=== PATIENT | female | born 1970 | race Two or more races ===

== ENCOUNTER 2020-02-02 00:38 | Inpatient (IN) | payer OTHER ==
[2020-02-02] MEDS ORDERED: SODIUM CHLORIDE 0.9% 500 ML INFUS.BAG IV ONE (01:32)
[2020-02-02] MEDS ORDERED: ACETAMINOPHEN 1000 MG/100 ML VIAL (NON FORMULARY) IVPB ONE (01:32)
--- NOTE | 2020-02-02 01:51 | PDOC ---
History of Present Illness - General Chief Complaint: Pain, Acute Stated Complaint: PAIN Time Seen by Provider: 02/02/20 01:31 History Source: Patient Exam Limitations: No Limitations - History of Present Illness Initial Comments: 02/02/20 01:46 [id number] who p/w RUQ pain intermittently for the past 2 mo, generally worsening, exacerbated in the past 2 days and in particular tonight after she ate fried plantains. Radiating to her right mid-back, but not to the spine. Denies any f/ c/n/v/d/c, denies chest pain, SOB, lower abdominal pain, dysuria, chance of being , rash, vaginal bleeding/discharge, etc. Has not tried medication for the pain, has not seen a doctor for this in the past 2 months since it started. Past History - Past Medical History Allergies/Adverse Reactions: Allergies Allergy/AdvReac Type Severity Reaction Status Date / Time Penicillins Allergy Verified 02/02/20 01:11 Home Medications: Ambulatory Orders Diltiazem HCl [Diltiazem 24Hr ER] 120 mg PO DAILY 02/02/20 Levofloxacin [Levaquin] 500 mg PO DAILY #5 tablet 02/02/20 Methimazole 10 mg PO Q8H 02/02/20 Pantoprazole Sodium [Protonix IV] 40 mg IVPUSH DAILY vial 02/02/20 Tramadol HCl 50 mg PO Q6H PRN #30 tablet MDD 4 02/02/20 - Psycho Social/Smoking Cessation Hx Smoking History: Never smoked Have you smoked in the past 12 months: No Information on smoking cessation initiated: No Hx Alcohol Use: No Drug/Substance Use Hx: No Review of Systems - Review of Systems Able to Perform ROS?: Yes Comments:: 02/02/20 01:51 GEN: no fever, chills, malaise, or generalized weakness HEENT: no ear pain, congestion, sore throat, vision change, or eye pain CV: no chest pain, palpitations, lightheadedness, syncope, or edema RESP: no SOB, wheezing, or cough GI: abdominal pain, no nausea, vomiting, diarrhea, constipation, or rectal bleed : no dysuria, hematuria, or discharge MSK: no muscle weakness or pain, no joint swelling or pain NEURO: no headache, vertigo, numbness, tingling, or focal weakness PSYCH: no SI, HI, or behavior change SKIN: no jaundice, rash, lesions, or unexplained bruises ROS otherwise negative except as noted in HPI *Physical Exam - Vital Signs Last Vital Signs Temp Pulse Resp BP Pulse Ox 98.0 F 86 20 143/74 99 02/02/20 01:09 02/02/20 01:09 02/02/20 01:09 02/02/20 01:09 02/02/20 01:09 - Physical Exam 02/02/20 01:51 GENERAL: a bit uncomfortable-appearing, A/Ox4, mild distress, holding RUQ in hand/splinting, answers questions appropriately HEENT: PERRLA, EOMI, moist mucous membranes NECK/BACK: no midline ttp, no spinal stepoff or deformity, no hematoma, full ROM, neck supple CARDIOVASCULAR: regular rate/rhythm, no MGR, strong peripheral pulses, capillary refill <2 seconds, extremities wwp, no edema LUNGS/RESPIRATORY: no respiratory distress, CTAB GI/ABDOMEN: symmetric [id number], normoactive BS, soft, moderate RUQ ttp, mild epigastric ttp, no midline pulsatile masses : no CVA tenderness EXTREMITIES: no muscle atrophy, no acute deformity SKIN: warm and dry, no pallor, no jaundice, no rash, no bruising, no skin breakdown, no cuts, no lesions NEUROLOGICAL: GCS 15, CN II-XII grossly intact, 5/5 strength proximally and distally, no facial droop Heart Score/ECG Review #1 Sinus rhythm, rate 72, normal axis and intervals, no ST-T changes ED Treatment Course - LABORATORY CBC & Chemistry Diagram: 02/02/20 07:45 02/02/20 07:45 - RADIOLOGY Radiology Studies Ordered: Category Date Time Status ABDOMEN US -LIMITED [US] Stat Ultrasound 02/02/20 01:27 Ordered Medical Decision Making - Medical Decision Making 02/02/20 01:53 Adult female Pt p/w RUQ abdominal pain. Initial Vital Signs Temp Pulse Resp BP Pulse Ox 98.0 F 86 20 143/74 99 02/02/20 01:09 02/02/20 01:09 02/02/20 01:09 02/02/20 01:09 02/02/20 01:09 Exam: As noted in Physical Exam section. DDX IBNLT: most likely choledocholithiasis or symptomatic cholelightiasis or cholecystitis, also possiblilities include pancreatitis, gastritis, PUD, etc. Less likely cholangitis as the patient is not ill-appearing, no jaundice, no fever or other vitals abnormalities. Less likely appendicitis without RLQ pain, less likely colitis or diverticulitis as patient has no additional GI symptoms and no known hx. Very unlikely to be AAA/AD, ACS, renal colic, obstructive uropathy, UTI/pyelonephritis, hernia, SBO, mesenteric/bowel ischemia, bowel perforation, malignancy, ovarian torsion, ovarian cyst, ectopic , PID, TOA, cervicitis, endometritis, salpingitis, oophoritis, Dasd-Ryek-Tzsqjc syndrome, primary dysmenorrhea, endometriosis, fibroids, constipation, gas, musculoskeletal, etc. W/U ordered: Labs, EKG, RUQ US TX ordered: IVF Ofirmev EKG: Reviewed; results as noted in ECG Review section. US: large stone in neck of gallbladder without e/o cholecystitis Laboratory Tests 02/02/20 02/02/20 02/02/20 02:02 02:02 02:02 WBC 9.2 RBC 5.07 Hgb 13.2 Hct 41.2 MCV 81.1 MCH 26.0 MCHC 32.1 RDW 15.2 Plt Count 235 MPV 8.4 Absolute Neuts (auto) 5.8 Neutrophils % 62.6 Lymphocytes % 28.1 Monocytes % 5.8 Eosinophils % 3.1 Basophils % 0.4 Nucleated RBC % 0 PT with INR 11.60 INR 0.98 Sodium 141 Potassium 3.9 Chloride 106 Carbon Dioxide 29 Anion Gap 7 L BUN 10.6 Creatinine 0.5 L Est GFR (CKD-EPI)AfAm 129.88 Est GFR (CKD-EPI)NonAf 112.06 Random Glucose 120 H Calcium 9.2 Total Bilirubin 0.5 AST 14 L ALT 27 Alkaline Phosphatase 206 H Total Protein 8.0 Albumin 4.2 Lipase 49 L Blood Type Antibody Screen 02/02/20 02:02 WBC RBC Hgb Hct MCV MCH MCHC RDW Plt Count MPV Absolute Neuts (auto) Neutrophils % Lymphocytes % Monocytes % Eosinophils % Basophils % Nucleated RBC % PT with INR INR Sodium Potassium Chloride Carbon Dioxide Anion Gap BUN Creatinine Est GFR (CKD-EPI)AfAm Est GFR (CKD-EPI)NonAf Random Glucose Calcium Total Bilirubin AST ALT Alkaline Phosphatase Total Protein Albumin Lipase Blood Type A POSITIVE Antibody Screen Negative ADMIT The Pts symptoms persist despite ED treatments. The Pt is unsafe for discharge at this time. They require further hospital observation, workup, and treatment. Microblog sent to [facility] for admission. 02/02/20 02:58 Blank Decision to Admit order is placed per ED protocol. Spoke with admitting team sales donor recruitment representative, in agreement Pt to be admitted. Decision to Admit order placed to admitting team covering attending. Will call Surgeon brand sales consultant Emil Damian at 6am. Discharge - Discharge Information Problems reviewed: Yes Clinical Impression/Diagnosis: Symptomatic cholelithiasis Condition: Guarded - Admission Yes - Follow up/Referral - Patient Discharge Instructions - Post Discharge Activity
[2020-02-02 02:12] LABS: BASO % 0.4 % (0-2.0); EOS % 3.1 % (0-4.5); HEMATOCRIT 41.2 % (32.4-45.2); HEMOGLOBIN 13.2 GM/dL (10.7-15.3); LYMPH % 28.1 % (8-40); MCHC 32.1 g/dl (32.0-36.0); MEAN CELL VOLUME 81.1 fl (80-96); MEAN PLT VOLUME 8.4 fl (7.5-11.1); MONO % 5.8 % (3.8-10.2); NEUT % 62.6 % (42.8-82.8); PLATELET COUNT 235 K/MM3 (134-434); RBC 5.07 M/mm3 (3.60-5.2); RDW 15.2 % (11.6-15.6); WHITE BLOOD COUNT 9.2 K/mm3 (4.0-10.0)
[2020-02-02] MEDS ORDERED: ACETAMINOPHEN INJECTION 100 ML IVPB ONE (02:12)
[2020-02-02 02:33] LABS: INR 0.98 (0.83-1.09); PROTHROMBIN TIME (PATIENT) 11.6 SEC (9.7-13.0)
[2020-02-02 02:41] LABS: ALBUMIN 4.2 g/dl (3.4-5.0); BILIRUBIN,TOTAL 0.5 mg/dL (0.2-1); BLOOD UREA NITROGEN 10.6 mg/dL (7-18); CALCIUM 9.2 mg/dL (8.5-10.1); CREATININE 0.5 mg/dL (0.55-1.3); POTASSIUM 3.9 mmol/L (3.5-5.1)
--- NOTE | 2020-02-02 02:53 | PN ---
Teaching Attending Note Name of Resident: Franklin Whitney ATTENDING PHYSICIAN STATEMENT I saw and evaluated the patient. I reviewed the resident's note and discussed the case with the resident. I agree with the resident's findings and plan as documented. SUBJECTIVE: Patient is a 49 year old woman with a PMH of Asthma, Hyperparathyroidism and Peniicllin allergy who presents with RUQ pain intermittently for the past 2 months. Pain is generally worsening in the past 2 days and in particular tonight after she ate fried plantains. Pain radiate to her right mid-back. Denies any fever, chills, nausea, diarrhea, vomiting, chest pain, SOB, lower abdominal pain, dysuria, rash, vaginal bleeding or abnormal vaginal discharge. Has not tried medication for the pain and has not seen a doctor for this in the past 2 months since it started. Denies alcohol, tobacco or illicit drug use. No sick contacts or recent travels. OBJECTIVE: Alert Vital Signs Period Temp Pulse Resp BP Sys/[place] Pulse Ox Last 24 Hr 98.0 F 86 20 143/74 99 HEENT: No Jaundice, eye redness or discharge, PERRLA, EOMI. Normocephalic, atraumatic. External ears are normal and hearing is grossly intact. No nasal discharge. Neck: Supple, nontender. No palpable adenopathy or thyromegaly. No JVD Chest: Good effort. Clear to auscultation and percussion. Heart: Regular. No S3, rub or murmur Abdomen: Not distended, soft, RUQ and epigastric tenderness and no HSM. No rebound or guarding. Normal bowel sounds. Ext: Peripheral pulses intact. No leg edema. Skin: Warm and dry. No petechiae, rash or ecchymosis. Neuro: Alert. Oriented x3. CN 2-12 grossly intact. Sensation grossly intact in all four extremities and DTR are symmetric. Psych: Appropriate mood and affect. Good insight. Abnormal Lab Results 02/02/20 02:02 Anion Gap 7 L Creatinine 0.5 L Random Glucose 120 H AST 14 L Alkaline Phosphatase 206 H Lipase 49 L Current Medications Generic Name Dose Route Start Last Admin Trade Name Freq PRN Reason Stop Dose Admin Acetaminophen 1,000 mg 02/02/20 09:00 Ofirmev Injection - IVPB 02/03/20 03:27 Q6H PRN PAIN LEVEL 6-10 Dextrose/Sodium Chloride 1,000 mls @ 75 mls/hr 02/02/20 03:30 D5-Ns - IV ASDIR ANIBAL Methimazole 10 mg 02/02/20 06:00 Tapazole - PO TID ANIBAL Ondansetron HCl 4 mg 02/02/20 03:26 Zofran Injection IVPUSH Q6H PRN NAUSEA Home Medications Medication Instructions Recorded Diltiazem HCl [Diltiazem ER] 120 mg PO DAILY 02/02/20 Methimazole 10 mg PO Q8H 02/02/20 ASSESSMENT AND PLAN: 1. Cholelithiasis/Biliary colic - Ultrasound showed cholelithiasis and impacted stone at gall bladder neck, gall bladder sludge, but no evidence of cholelithiasis. Will get an MRCP, consult Surgery and GI. Pain controlled with tylenol. No indication for antibiotics at this time. EKG shows NSR with rate of 72/minute and no significant ST-T wave changes. Urinalysis pending. Will continue comprehensive care for all of patients comorbid conditions including Methimazole for hyperthyroidism. 2. DVT prophylaxis - Lovenox 40 mg SQ q 24 hours. 3. Advance directives - Full code
--- NOTE | 2020-02-02 02:59 | PDOC ---
Attending Attestation - Resident Resident Name: Tamiko Hardin - ED Attending Attestation I have performed the following: I have examined & evaluated the patient, The case was reviewed & discussed with the resident, I agree w/resident's findings & plan, Exceptions are as noted - HPI HPI: 02/02/20 02:58 See resident HPI - Physicial Exam PE: 02/02/20 02:58 Agree with documented exam - Medical Decision Making 02/02/20 02:58 49F ruq abd px acute luz marina? pancreatitis? less likely pyelo, nephrolith f/u labs, US symptomatic tx re-eval dispo per clinical course Discharge - Discharge Information Problems reviewed: Yes Clinical Impression/Diagnosis: Symptomatic cholelithiasis Condition: Stable - Admission Yes - Follow up/Referral - Patient Discharge Instructions - Post Discharge Activity
[2020-02-02] MEDS ORDERED: ONDANSETRON 4 MG/2 ML VIAL IVPUSH PRN ×3 (03:26→14:02)
[2020-02-02] MEDS ORDERED: DEXTROSE 5%-NORMAL SALINE 1,000 ML IV SCH ×2 (03:30→14:02)
--- NOTE | 2020-02-02 03:35 | HP ---
CHIEF COMPLAINT: RUQ pain PCP: Dr. Young HISTORY OF PRESENT ILLNESS: Danay Roberto is a 49 year old female with a past medical history of hyperthyroidism and asthma presenting for RUQ pain. She stated that she was at [facility] in July for a similar presentation and stated that she was told that she had inflammation of her gallbladder and told to follow up with GI which she noted she never did. She states that the pain was intermittent and was associated with meals. Pain would resolve spontaneously. On this occasion she ate a meal of fried plantains and noted that the pain did not remit and was associated with nausea and non bloody non bilious vomiting. She states the pain radiated to the epigastric region. Denied alleviating factors. Denied cp, sob, constipation, diarrhea, dysuria, hematuria, frequency, urgency, fever, chills, headaches, dizziness, lightheadedness. Denied recent travel or sick contacts. 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 Allergies Penicillins Allergy (Verified 02/02/20 01:11) HOME MEDICATIONS: REVIEW OF SYSTEMS CONSTITUTIONAL: loss of appetite Absent: fever, chills, diaphoresis, generalized weakness, malaise, weight change HEENT: Absent: rhinorrhea, nasal congestion, throat pain, throat swelling, difficulty swallowing, visual changes CARDIOVASCULAR: Absent: chest pain, syncope, palpitations, irregular heart rate, lightheadedness, peripheral edema RESPIRATORY: Absent: cough, shortness of breath, dyspnea with exertion, orthopnea, wheezing GASTROINTESTINAL: abdominal pain, nausea, vomiting Absent: abdominal distension, diarrhea, constipation, melena, hematochezia GENITOURINARY: Absent: dysuria, frequency, urgency, hesitancy, hematuria, flank pain, genital pain MUSCULOSKELETAL: Absent: myalgia, arthralgia, joint swelling, back pain, neck pain SKIN: Absent: rash, itching, pallor HEMATOLOGIC/IMMUNOLOGIC: Absent: easy bleeding, easy bruising, lymphadenopathy, frequent infections ENDOCRINE: Absent: unexplained weight gain, unexplained weight loss, heat intolerance, cold intolerance NEUROLOGIC: Absent: headache, focal weakness or paresthesias, dizziness, unsteady gait, seizure, mental status changes PSYCHIATRIC: Absent: anxiety, depression, suicidal or homicidal ideation, hallucinations. PHYSICAL EXAMINATION Vital Signs - 24 hr 02/02/20 01:09 Temperature 98.0 F Pulse Rate 86 Respiratory 20 Rate Blood Pressure 143/74 O2 Sat by Pulse 99 Oximetry (%) GENERAL: Awake, alert, and fully oriented, in no acute distress. HEAD: Normal with no signs of trauma. EYES: Pupils equal, round and reactive to light, extraocular movements intact, conjunctiva clear. EARS, NOSE, THROAT: Oropharynx clear without exudates. Moist mucous membranes. LUNGS: Breath sounds equal, clear to auscultation bilaterally. No wheezes, and no crackles. No accessory muscle use. HEART: Regular rate and rhythm, normal S1 and S2 without murmur. ABDOMEN: Soft, tender to palpation of the RUQ, not distended, normoactive bowel sounds, no rebound, no masses. Ruffin's positive. MUSCULOSKELETAL: Normal range of motion at all joints. No bony deformities or tenderness. No CVA tenderness. LOWER EXTREMITIES: 2+ pulses, warm, well-perfused. No calf tenderness. No peripheral edema. NEUROLOGICAL: Cranial nerves II-XII intact. 5/5 muscle strength upper and lower extremities bilaterally. Sensation intact to gross touch throughout. PSYCHIATRIC: Cooperative. Good eye contact. Appropriate mood and affect. SKIN: Warm, dry, normal turgor, no rashes or lesions noted, normal capillary refill. Laboratory Results - last 24 hr 02/02/20 02/02/20 02/02/20 02:02 02:02 02:02 WBC 9.2 RBC 5.07 Hgb 13.2 Hct 41.2 MCV 81.1 MCH 26.0 MCHC 32.1 RDW 15.2 Plt Count 235 MPV 8.4 Absolute Neuts (auto) 5.8 Neutrophils % 62.6 Lymphocytes % 28.1 Monocytes % 5.8 Eosinophils % 3.1 Basophils % 0.4 Nucleated RBC % 0 PT with INR 11.60 INR 0.98 Sodium 141 Potassium 3.9 Chloride 106 Carbon Dioxide 29 Anion Gap 7 L BUN 10.6 Creatinine 0.5 L Est GFR (CKD-EPI)AfAm 129.88 Est GFR (CKD-EPI)NonAf 112.06 Random Glucose 120 H Calcium 9.2 Total Bilirubin 0.5 AST 14 L ALT 27 Alkaline Phosphatase 206 H Total Protein 8.0 Albumin 4.2 Lipase 49 L EKG--> NSR, flat T wave in aVL, no ST segment changes, QTc 429 ASSESSMENT/PLAN: Danay Roberto is a 49 year old female with a past medical history of hyperthyroidism and asthma admitted for biliary colic secondary to impacted gallbladder stone. Impacted Gallbladder Stone - RUQ with noted impacted gallbladder stone with no evidence of cholecystitis - Tylenol for pain, tolerating well - Zofran for nausea - D5 NS at 75cc/hr - Surgery consulted - NPO for possible surgery Hyperthyroidism - continue home methimazole 10mg q8h DVT PPx - SCDs, no chemical prophylaxis in setting of potential surgery FEN - D5 NS at 75cc/hr - continue to monitor electrolytes and replete as necessary - NPO Dispo - admit to Med-surg Family Medical History Family Hx Cardiac Disorders: Mother Family Hx Diabetes: Mother Other Family History: Mother - HTN Visit type - Emergency Visit Emergency Visit: Yes ED Registration Date: 02/02/20 Care time: The patient presented to the Emergency Department on the above date and was hospitalized for further evaluation of their emergent condition. - New Patient This patient is new to me today: Yes Date on this admission: 02/02/20 - Critical Care Critical Care patient: No
[2020-02-02] MEDS ORDERED: METHIMAZOLE 10 MG TABLET (FP) PO SCH ×2 (03:45→06:00)
[2020-02-02 04:36] VITALS: BMI 23.7
[2020-02-02] MEDS ORDERED: MORPHINE SULFATE 2 MG/ML VIAL IVPUSH ONE (06:39)
[2020-02-02 06:49] LABS: URINE APPEARANCE CLEAR; URINE BILIRUBIN NEGATIVE (NEGATIVE); URINE COLOR YELLOW; URINE GLUCOSE (UA) NEGATIVE (NEGATIVE); URINE KETONE NEGATIVE (NEGATIVE); URINE LEUK ESTERASE NEGATIVE (NEGATIVE); URINE NITRITE NEGATIVE (NEGATIVE); URINE PROTEIN NEGATIVE (NEGATIVE); URINE UROBILINOGEN 0.2 mg/dL (0.2-1.0)
[2020-02-02 06:52] LABS: HCG,QUALITATIVE URINE Negative
--- NOTE | 2020-02-02 08:22 | HOSP ---
Subjective - Review of Symptoms Gastrointestinal: Yes: Abdominal Pain (RUQ) Physical Examination Vital Signs: Vital Signs Temperature 98.2 F 02/02/20 05:41 Pulse Rate 70 02/02/20 05:41 Respiratory Rate 18 02/02/20 05:41 Blood Pressure 140/66 02/02/20 05:41 O2 Sat by Pulse Oximetry (%) 98 02/02/20 04:12 Constitutional: Yes: Well Nourished, No Distress, Calm Eyes: Yes: WNL, Conjunctiva Clear, EOM Intact HENT: Yes: WNL, Atraumatic, Normocephalic Neck: Yes: WNL, Supple, Trachea Midline Cardiovascular: Yes: WNL, Regular Rate and Rhythm Respiratory: Yes: WNL, Regular, CTA Bilaterally Gastrointestinal: Yes: WNL, Normal Bowel Sounds, Soft, Tenderness (RUQ), Other ([place] sign +) ...Rectal Exam: Yes: Deferred Renal/: Yes: WNL Breast(s): Yes: WNL Musculoskeletal: Yes: WNL Extremities: Yes: WNL Peripheral Pulses WNL: No Peripheral Pulses: Left Radial: 2+, Right Radial: 2+, Left Doralis Pedis: 2+, Right Dorsalis Pedis: 2+, Left Femoral: 2+, Right Femoral: 2+ Integumentary: Yes: WNL Neurological: Yes: WNL, Alert, Oriented ...Motor Strength: WNL Psychiatric: Yes: WNL, Alert, Oriented Labs: CBC, BMP 02/02/20 02:02 02/02/20 02:02 Hospitalist Encounter Assessment: RUQ with noted possible impacted 1.6 cm gallbladder stone in the gallbladder neck and gallbladder sludge without evidence of cholecystitis Pending OR with Dr Bacon for lap luz marina
[2020-02-02 08:54] LABS: BASO % 0.3 % (0-2.0); EOS % 2.2 % (0-4.5); HEMOGLOBIN 13.1 GM/dL (10.7-15.3); MCH 25.8 pg (25.7-33.7); MCHC 31.9 g/dl (32.0-36.0); MEAN CELL VOLUME 81.1 fl (80-96); MEAN PLT VOLUME 8.8 fl (7.5-11.1); MONO % 3.8 % (3.8-10.2); NEUT % 74.7 % (42.8-82.8); PLATELET COUNT 239 K/MM3 (134-434); RBC 5.05 M/mm3 (3.60-5.2); RDW 15.4 % (11.6-15.6); WHITE BLOOD COUNT 7.8 K/mm3 (4.0-10.0)
[2020-02-02] MEDS ORDERED: ACETAMINOPHEN 1000 MG/100 ML VIAL (NON FORMULARY) IVPB PRN ×2 (09:00→14:02)
[2020-02-02 09:21] LABS: ALBUMIN 4.1 g/dl (3.4-5.0); BILIRUBIN,TOTAL 0.7 mg/dL (0.2-1); BLOOD UREA NITROGEN 8.9 mg/dL (7-18); CALCIUM 9.2 mg/dL (8.5-10.1); CREATININE 0.5 mg/dL (0.55-1.3); MAGNESIUM 2.1 mg/dL (1.8-2.4); PHOSPHOROUS 4.2 mg/dL (2.5-4.9); POTASSIUM 4.2 mmol/L (3.5-5.1); TOT PROT 7.9 g/dl (6.4-8.2)
--- NOTE | 2020-02-02 10:45 | EKG ---
Test Reason : Blood Pressure : / mmHG Vent. Rate : 072 BPM Atrial Rate : 072 BPM P-R Int : 150 ms QRS Dur : 090 ms QT Int : 392 ms P-R-T Axes : 058 031 059 degrees QTc Int : 429 ms NORMAL SINUS RHYTHM NONSPECIFIC ST AND T WAVE ABNORMALITY ABNORMAL ECG NO PREVIOUS ECGS AVAILABLE Confirmed by BERE THOMASON MD ([id number]) on 02/02/2020 10:45:13 AM Referred By: Confirmed By:BERE THOMASON MD
[2020-02-02] MEDS ORDERED: ROCURONIUM BROMIDE 50 MG/5 ML SYRINGE ONE (10:49)
[2020-02-02] MEDS ORDERED: MIDAZOLAM HCL 2 MG/2 ML SINGLE DOSE VIAL ONE (10:49)
[2020-02-02] MEDS ORDERED: PROPOFOL 20 ML ONE ×2 (10:49)
[2020-02-02] MEDS ORDERED: ceFAZolin SODIUM 1 GM VIAL IVPB ONE (11:56)
[2020-02-02] MEDS ORDERED: NEOSTIGMINE METHYLSULFATE 0.5 MG/ML - 10 ML MDV ONE (12:19)
[2020-02-02] MEDS ORDERED: morphine SULFATE 4 MG/ML VIAL IVPB PRN (12:24)
[2020-02-02] MEDS ORDERED: oxyCODONE HCL 5 MG TABLET PO PRN (12:24)
--- NOTE | 2020-02-02 12:30 | OP ---
Operative Note - Note: Operative Date: 02/02/20 Pre-Operative Diagnosis: acute cholecystitits, cholelithiasis Operation: laparoscopic cholecystectomy, lavage Findings: thickened, inflamed gb, with large stone at neck Post-Operative Diagnosis: Same as Pre-op Surgeon: Franklin Samano Constitutional Law Professor: Zohaib Riley Anesthesiologist/IRRIGATION EQUIPMENT REMOVER: Glen [place] Anesthesia: General Specimens Removed: gb Estimated Blood Loss (mls): 10 Operative Report Dictated: Yes
--- NOTE | 2020-02-02 12:34 | CONS ---
DATE OF CONSULTATION: 02/02/2020 REASON FOR CONSULTATION: Acute cholecystitis, cholelithiasis. This is an emergency room consultation at the request of the emergency room physician. BRIEF HISTORY: This is a 49-year-old female with history of hyperthyroidism and hypertension as well as asthma. She presents stating that for the past month she has had fatty food intolerance. This week, she has had multiple episodes of epigastric and right upper quadrant pain. She was hospitalized in [place] in July for similar presentation and told that she had gallbladder disease. She presents now with more than 12 hours of severe right upper quadrant pain. She denies nausea or vomiting. Denies fever. PAST MEDICAL HISTORY: As in HPI. PAST SURGICAL HISTORY: Had a skin cyst removed from her scalp and breast reduction surgery. No abdominal surgeries. SOCIAL HISTORY: Negative for alcohol. Negative for tobacco. ALLERGIES: PENICILLIN. HOME MEDICATIONS: She is not sure of the name, but she is on a thyroid medication and a hypertension medication and an inhaler for her asthma. REVIEW OF SYSTEMS: General: Denies fatigue or malaise. Cardiac: Denies chest pain or palpitations. Respiratory: Denies shortness of breath or wheeze. Gastrointestinal: As stated in HPI. Denies diarrhea. Denies blood in her stool. Denies recent weight loss. Genitourinary: Denies dysuria. Musculoskeletal: Denies joint pain. Psychiatric: Denies anxiety, depression, hearing voices. PHYSICAL EXAMINATION: General: This is a well-developed, well-nourished 49-year-old female in no distress. Vital Signs: She is afebrile. HEENT: Her head is normocephalic. Her sclerae are anicteric. Neck: Supple. Chest: Clear. Abdomen: Soft. She has severe epigastric as well as right upper quadrant tenderness. There are no surgical scars. No obvious hernias. Extremities: No edema. LABORATORY DATA: White blood cell count is normal at 7.8. There is no shift. Her chemistries are unremarkable. She has normal liver function tests with the exception of a mildly elevated alkaline phosphatase of 207. Her lipase is normal. Her urinalysis is unremarkable. IMAGING: She has an ultrasound of her abdomen. It shows a fatty liver with possible hepatocellular disease. It shows a large gallstone, non-mobile, at the gallbladder neck with sludge. Her common bile duct is noted to be 6 mm in diameter. ASSESSMENT: A 49-year-old female with right upper quadrant abdominal pain, right upper quadrant tenderness, ultrasound findings showing a stone impacting in the neck of the gallbladder with a mildly dilated common bile duct. Clinically, this is acute cholecystitis as the patient has had pain now for more than 6 hours. Her physical examination findings support that even though her white blood cell count is normal and she has no fever. As far as her mildly dilated bile duct, it is only 1 mm dilated more than you would expect at her age. Furthermore, her liver function tests, with the exception of a mildly elevated alkaline phosphatase, are unremarkable. Especially noted, her AST is only 12, her ALT is 27, and her total bilirubin is 0.7. Therefore, I have a very low suspicion for choledocholithiasis. At this point, as the patient has had severe pain overnight, I agree with admission, and I suspect she will have a poor outcome without surgical intervention. Therefore, I have offered the patient surgery, and she has agreed. Risks and benefits of surgery have been explained to the patient in detail. These are including, but not limited to, the possibility of conversion to open, possibility of common bile duct injury, possibility of cystic duct stump leak, possibility of retained stone, possibility of injury to viscera, possibility of blood loss requiring blood transfusion, possibility of missed diagnosis, plus a multitude of medical risks including, but not limited to, cardiac, neurologic, pulmonary, and vascular complications, even . The patient understands these risks and is agreeable to surgery. DO VARUN BOCANEGRA/[id number]
[2020-02-02] MEDS ORDERED: LACTATED RINGERS SOLUTION 1,000 ML IV SCH (12:45)
--- NOTE | 2020-02-02 13:08 | SURG ---
Surgery Clutch Assembler Note Clutch Assembler: Zohaib Riley PA-C Date of Service: 02/02/20 Diagnosis: acute cholecystitits, cholelithiasis Procedure: laparoscopic cholecystectomy, lavage I was present for the entirety of the operative procedure. For further detail, please refer to operative report. Visit type - Case Type Case Type: ED Admission - Emergency Emergency Visit: Yes ED Registration Date: 02/02/20 Care time: The patient presented to the Emergency Department on the above date and was hospitalized for further evaluation of their emergent condition. - New patient This patient is new to me today: Yes Date on this admission: 02/02/20
--- NOTE | 2020-02-02 13:11 | OP ---
DATE OF OPERATION: 02/02/2020 PREOPERATIVE DIAGNOSES: Acute cholecystitis, cholelithiasis. POSTOPERATIVE DIAGNOSES: Acute cholecystitis, cholelithiasis. PROCEDURE: Laparoscopic cholecystectomy and lavage. SURGEON: Franklin Samano DO CAMP HEAD COUNSELOR: TRICE Arellano ANESTHESIOLOGIST: Glen Marie MD INTRAOPERATIVE FINDINGS: A thickened inflamed gallbladder with a large stone impacted at its neck. BLOOD LOSS: Minimal. DRAINS: None. COMPLICATIONS: None. DISPOSITION: Recovery in stable condition. BRIEF HISTORY: This is a 49-year-old female who presented to [facility] emergency room with right upper quadrant abdominal pain lasting more than 12 hours. She had ultrasound findings consistent with acute cholecystitis with normal liver function tests with the exception of alkaline phosphatase and presents now for surgery. PROCEDURE: The patient was placed in the supine position. After general anesthesia was initiated the abdomen was prepped and draped in sterile fashion. A vertical incision was made infraumbilical with scalpel used to go through subcutaneous tissue. The fascia was lifted with a Barrington clamp. Veress needle was inserted and pneumoperitoneum was created. Next an 11-mm trocar was placed followed by insertion of a 10-mm 0-degree laparoscope. An additional 11-mm trocar was placed subxiphoid and two 5-mm trocars placed in the right upper quadrant. Attention was turned to the right upper quadrant and the gallbladder was seen. It was pale, distended, partially ischemic with a large stone impacted at its neck. Variceal decompression was done in order to enable grasping of the gallbladder, the fundus lifted cephalad, the infundibulum retracted laterally. The was dissected down exposing a small cystic duct and cystic artery. A large stone had to be mobilized from the infundibulum in order to enable grasping of the infundibulum. A clip belt lacer was used to divide the cystic duct and cystic artery. The gallbladder was liberated from the liver bed using electrocautery. The critical view was ascertained prior to doing this. At this point the gallbladder was removed through the infraumbilical trocar site in an EndoCatch bag and sent to Pathology marked as specimen. A limited lavage was done. All return was clear. Trocars were removed under direct visualization as pneumoperitoneum was released and no bleeding was noted. The fascia at the infraumbilical trocar site was closed with multiple interrupted 0 Vicryl sutures. The 4 skin incisions were closed with Biosyn and Dermabond dressing was placed. Overall the patient tolerated the procedure well. There were no complications. The patient was advised to stay overnight per routine; however, she stated for personal reasons she may not follow my advice preoperatively. DO VARUN BOCANEGRA/[id number] MTDD
--- NOTE | 2020-02-02 16:25 | DS ---
Physical Exam: SUBJECTIVE: Patient seen and examined OBJECTIVE: Vital Signs Period Temp Pulse Resp BP Sys/[place] Pulse Ox Last 24 Hr 98 F-98.2 F 48-86 14-20 123-147/58-74 98-100 PHYSICAL EXAM GENERAL: The patient is awake, alert, and fully oriented, in no acute distress. HEAD: Normal with no signs of trauma. EYES: PERRL, extraocular movements intact, sclera anicteric, conjunctiva clear. ENT: Ears normal, nares patent, oropharynx clear without exudates, moist mucous membranes. NECK: Trachea midline, full range of motion, supple. LUNGS: Breath sounds equal, clear to auscultation bilaterally, no wheezes, no crackles, no accessory muscle use. HEART: Regular rate and rhythm, S1, S2 without murmur, rub or gallop. ABDOMEN: Soft, nontender, nondistended, normoactive bowel sounds, no guarding, no rebound, no hepatosplenomegaly, no masses. EXTREMITIES: 2+ pulses, warm, well-perfused, no edema. NEUROLOGICAL: Cranial nerves II through XII grossly intact. Normal speech, gait not observed. PSYCH: Normal mood, normal affect. SKIN: Warm, dry, normal turgor, no rashes or lesions noted. LABS Laboratory Results - last 24 hr 02/02/20 02/02/20 02/02/20 02:02 02:02 02:02 WBC 9.2 RBC 5.07 Hgb 13.2 Hct 41.2 MCV 81.1 MCH 26.0 MCHC 32.1 RDW 15.2 Plt Count 235 MPV 8.4 Absolute Neuts (auto) 5.8 Neutrophils % 62.6 Lymphocytes % 28.1 Monocytes % 5.8 Eosinophils % 3.1 Basophils % 0.4 Nucleated RBC % 0 PT with INR 11.60 INR 0.98 Sodium 141 Potassium 3.9 Chloride 106 Carbon Dioxide 29 Anion Gap 7 L BUN 10.6 Creatinine 0.5 L Est GFR (CKD-EPI)AfAm 129.88 Est GFR (CKD-EPI)NonAf 112.06 Random Glucose 120 H Calcium 9.2 Phosphorus Magnesium Total Bilirubin 0.5 AST 14 L ALT 27 Alkaline Phosphatase 206 H Total Protein 8.0 Albumin 4.2 Lipase 49 L Urine Color Urine Appearance Urine pH Ur Specific [place] Urine Protein Urine Glucose (UA) Urine Ketones Urine Blood Urine Nitrite Urine Bilirubin Urine Urobilinogen Ur Leukocyte Esterase Urine HCG, Qual Blood Type Antibody Screen 02/02/20 02/02/20 02/02/20 02:02 05:08 07:45 WBC 7.8 RBC 5.05 Hgb 13.1 Hct 41.0 MCV 81.1 MCH 25.8 MCHC 31.9 L RDW 15.4 Plt Count 239 MPV 8.8 Absolute Neuts (auto) 5.8 Neutrophils % 74.7 Lymphocytes % 19.0 D Monocytes % 3.8 Eosinophils % 2.2 Basophils % 0.3 Nucleated RBC % 0 PT with INR INR Sodium Potassium Chloride Carbon Dioxide Anion Gap BUN Creatinine Est GFR (CKD-EPI)AfAm Est GFR (CKD-EPI)NonAf Random Glucose Calcium Phosphorus Magnesium Total Bilirubin AST ALT Alkaline Phosphatase Total Protein Albumin Lipase Urine Color Yellow Urine Appearance Clear Urine pH 8.0 Ur Specific [place] 1.016 Urine Protein Negative Urine Glucose (UA) Negative Urine Ketones Negative Urine Blood Negative Urine Nitrite Negative Urine Bilirubin Negative Urine Urobilinogen 0.2 Ur Leukocyte Esterase Negative Urine HCG, Qual Negative Blood Type A POSITIVE Antibody Screen Negative 02/02/20 07:45 WBC RBC Hgb Hct MCV MCH MCHC RDW Plt Count MPV Absolute Neuts (auto) Neutrophils % Lymphocytes % Monocytes % Eosinophils % Basophils % Nucleated RBC % PT with INR INR Sodium 142 Potassium 4.2 Chloride 106 Carbon Dioxide 29 Anion Gap 7 L BUN 8.9 Creatinine 0.5 L Est GFR (CKD-EPI)AfAm 129.88 Est GFR (CKD-EPI)NonAf 112.06 Random Glucose 128 H Calcium 9.2 Phosphorus 4.2 Magnesium 2.1 Total Bilirubin 0.7 AST 12 L ALT 27 Alkaline Phosphatase 207 H Total Protein 7.9 Albumin 4.1 Lipase Urine Color Urine Appearance Urine pH Ur Specific [place] Urine Protein Urine Glucose (UA) Urine Ketones Urine Blood Urine Nitrite Urine Bilirubin Urine Urobilinogen Ur Leukocyte Esterase Urine HCG, Qual Blood Type Antibody Screen HOSPITAL COURSE: Date of Admission:02/02/20 Date of Discharge: 02/02/20 Discharge Summary Problems reviewed: Yes Reason For Visit: SYMPTOMS OF CHOLELITHIASIS Condition: Improved - Instructions Diet, Activity, Other Instructions: Franklin Quan D.O. POST-OPERATIVE DISCHARGE INSTRUCTIONS [address] [place] [address] Post Anesthesia/IV Sedation Do not drive a motor vehicle or drink alcohol for the next 24 hours. Physical Activity Resume normal everyday activity as tolerated. No heavy lifting or exercise until seen by your surgeon. You may walk unlimited amounts and climb stairs. You may resume driving a car when you feel safe and comfortable behind the wheel. Wound Care / Bathing If you have a bandage, leave it on, and keep dry, for 48 to 72 hours. After that time, discard the outer bandage. If there are tapes on the skin under the outer bandage, leave then in place. They will peel of in the next 7-10 days. Do not peel them off. You may shower in 48-72 hours after the bandage removal. If there are tapes present on the skin, you may shower over them. If you have clear glue covering your incision, you may shower in 24 hours. It will peel off in the next 1-2 weeks. Diet There are no dietary restrictions. Eat healthy, high fiber foods. Drink 6-8 glasses of fluid each day. This will assist in keeping your bowels regular. Pain Management You may take Tylenol (Acetaminophen) or Ibuprofen (Motrin, Advil, etc) for mild pain. Prescription medication, if ordered, should be taken as prescribed for moderate to severe pain. Bruising Some black and blue areas on or around your surgical site are normal and will disappear in a few days. Male groin hernia patients may experience swelling and black/blueness in the penis and scrotum. This will resolve on its own in 1-[address] COWAN / DR. MCKEON / DR. QUAN FOR ANY OF THE FOLLOWING: * Severe pain not relieved by medication * Fever of 101 or higher * Excessive bleeding or drainage on dressing * Inability to urinate Call the office at [phone] for an appointment in 10-14 days. - Home Medications Comprehensive Discharge Medication List: Ambulatory Orders Diltiazem HCl [Diltiazem 24Hr ER] 120 mg PO DAILY 02/02/20 Levofloxacin [Levaquin] 500 mg PO DAILY #5 tablet 02/02/20 Methimazole 10 mg PO Q8H 02/02/20 Pantoprazole Sodium [Protonix IV] 40 mg IVPUSH DAILY vial 02/02/20 Tramadol HCl 50 mg PO Q6H PRN #30 tablet MDD 4 02/02/20
[2020-02-02] MEDS ORDERED: PT OWN MED DRAWER 7, Y5N ONE (21:24)
[2020-02-02] MEDS: METHIMAZOLE 10 MG TABLET (FP) PO SCH (21:39)
[2020-02-03] MEDS: METHIMAZOLE 10 MG TABLET (FP) PO SCH (05:48)
--- NOTE | 2020-02-03 08:06 | DS ---
Physical Exam: SUBJECTIVE: Patient seen and examined OBJECTIVE: Vital Signs Period Temp Pulse Resp BP Sys/[place] Pulse Ox Last 24 Hr 97.9 F-98.5 F 48-85 14-20 120-147/58-76 98-100 PHYSICAL EXAM Constitutional: Yes: Well Nourished, No Distress, Calm Eyes: Yes: WNL, Conjunctiva Clear, EOM Intact HENT: Yes: WNL, Atraumatic, Normocephalic Neck: Yes: WNL, Supple, Trachea Midline Cardiovascular: Yes: WNL, Regular Rate and Rhythm Respiratory: Yes: WNL, Regular, CTA Bilaterally Gastrointestinal: Yes: WNL, Normal Bowel Sounds, Soft, Tenderness (RUQ), Other (Babcock sign +) ...Rectal Exam: Yes: Deferred Renal/: Yes: WNL Breast(s): Yes: WNL Musculoskeletal: Yes: WNL Extremities: Yes: WNL Peripheral Pulses WNL: No Peripheral Pulses: Left Radial: 2+, Right Radial: 2+, Left Doralis Pedis: 2+, Right Dorsalis Pedis: 2+, Left Femoral: 2+, Right Femoral: 2+ Integumentary: Yes: WNL Neurological: Yes: WNL, Alert, Oriented ...Motor Strength: WNL Psychiatric: Yes: WNL, Alert, Oriented CBC, BMP 02/02/20 02:02 02/02/20 02:0 LABS Laboratory Results - last 24 hr 02/02/20 02/02/20 07:45 07:45 WBC 7.8 RBC 5.05 Hgb 13.1 Hct 41.0 MCV 81.1 MCH 25.8 MCHC 31.9 L RDW 15.4 Plt Count 239 MPV 8.8 Absolute Neuts (auto) 5.8 Neutrophils % 74.7 Lymphocytes % 19.0 D Monocytes % 3.8 Eosinophils % 2.2 Basophils % 0.3 Nucleated RBC % 0 Sodium 142 Potassium 4.2 Chloride 106 Carbon Dioxide 29 Anion Gap 7 L BUN 8.9 Creatinine 0.5 L Est GFR (CKD-EPI)AfAm 129.88 Est GFR (CKD-EPI)NonAf 112.06 Random Glucose 128 H Calcium 9.2 Phosphorus 4.2 Magnesium 2.1 Total Bilirubin 0.7 AST 12 L ALT 27 Alkaline Phosphatase 207 H Total Protein 7.9 Albumin 4.1 HOSPITAL COURSE: Date of Admission:02/02/20 Date of Discharge: 02/03/20 RUQ with noted possible impacted 1.6 cm gallbladder stone in the gallbladder neck and gallbladder sludge without evidence of cholecystitis S/P lap luz marina. POD # [address] Quan. No intraop complications. Tolerating full diet. Pain well managed. Able to ambulate and voided. Levaquin x 5 days fro discharge. Tramadol for pain. Surgical discharge instructions given. Medically stable for dc to home Minutes to complete discharge: 35 Discharge Summary Problems reviewed: Yes Reason For Visit: SYMPTOMS OF CHOLELITHIASIS - Instructions Diet, Activity, Other Instructions: Franklin Quan D.O. POST-OPERATIVE DISCHARGE INSTRUCTIONS [address] [facility], [address] [place] [address] Post Anesthesia/IV Sedation Do not drive a motor vehicle or drink alcohol for the next 24 hours. Physical Activity Resume normal everyday activity as tolerated. No heavy lifting or exercise until seen by your surgeon. You may walk unlimited amounts and climb stairs. You may resume driving a car when you feel safe and comfortable behind the wheel. Wound Care / Bathing If you have a bandage, leave it on, and keep dry, for 48 to 72 hours. After that time, discard the outer bandage. If there are tapes on the skin under the outer bandage, leave then in place. They will peel of in the next 7-10 days. Do not peel them off. You may shower in 48-72 hours after the bandage removal. If there are tapes present on the skin, you may shower over them. If you have clear glue covering your incision, you may shower in 24 hours. It will peel off in the next 1-2 weeks. Diet There are no dietary restrictions. Eat healthy, high fiber foods. Drink 6-8 glasses of fluid each day. This will assist in keeping your bowels regular. Pain Management You may take Tylenol (Acetaminophen) or Ibuprofen (Motrin, Advil, etc) for mild pain. Prescription medication, if ordered, should be taken as prescribed for moderate to severe pain. Bruising Some black and blue areas on or around your surgical site are normal and will disappear in a few days. Male groin hernia patients may experience swelling and black/blueness in the penis and scrotum. This will resolve on its own in 1-[address] COWAN / DR. MCKEON / DR. QUAN FOR ANY OF THE FOLLOWING: * Severe pain not relieved by medication * Fever of 101 or higher * Excessive bleeding or drainage on dressing * Inability to urinate Call the office at [phone] for an appointment in 10-14 days. Disposition: HOME - Home Medications Comprehensive Discharge Medication List: Ambulatory Orders Diltiazem HCl [Diltiazem 24Hr ER] 120 mg PO DAILY 02/02/20 Levofloxacin [Levaquin] 500 mg PO DAILY #5 tablet 02/02/20 Methimazole 10 mg PO Q8H 02/02/20 Pantoprazole Sodium [Protonix IV] 40 mg IVPUSH DAILY vial 02/02/20 Tramadol HCl 50 mg PO Q6H PRN #30 tablet MDD 4 02/02/20 Prescription Drug Monitoring Program (I-STOP) results: I-STOP reviewed and no issues identified Problem List - Problems (1) Symptomatic cholelithiasis Code(s): K80.20 - CALCULUS OF GALLBLADDER W/O CHOLECYSTITIS W/O OBSTRUCTION This patient is new to me today: No Emergency Visit: Yes ED Registration Date: 02/02/20 Care time: The patient presented to the Emergency Department on the above date and was hospitalized for further evaluation of their emergent condition. Critical Care patient: No - Discharge Referral Referred to [facility] No
[2020-02-03 09:09] LABS: ALBUMIN 3.2 g/dl (3.4-5.0); BILIRUBIN,TOTAL 0.4 mg/dL (0.2-1); BLOOD UREA NITROGEN 9.4 mg/dL (7-18); CALCIUM 8.9 mg/dL (8.5-10.1); CREATININE 0.5 mg/dL (0.55-1.3); MAGNESIUM 1.9 mg/dL (1.8-2.4); POTASSIUM 3.7 mmol/L (3.5-5.1); TOT PROT 6.4 g/dl (6.4-8.2)
[2020-02-03 09:14] LABS: BASO % 0.1 % (0-2.0); EOS % 0.1 % (0-4.5); HEMATOCRIT 35.1 % (32.4-45.2); HEMOGLOBIN 11.2 GM/dL (10.7-15.3); LYMPH % 24.9 % (8-40); MCHC 31.9 g/dl (32.0-36.0); MEAN CELL VOLUME 81.5 fl (80-96); NEUT % 68.9 % (42.8-82.8); PLATELET COUNT 211 K/MM3 (134-434); RBC 4.31 M/mm3 (3.60-5.2); RDW 15.4 % (11.6-15.6); WHITE BLOOD COUNT 9.9 K/mm3 (4.0-10.0)
[2020-02-03] MEDS ORDERED: ENOXAPARIN NA (PORCINE) 40 MG/0.4 ML DISP.SYRIN SQ SCH (10:00)
[2020-02-03] MEDS ORDERED: PANTOPRAZOLE SODIUM 40 MG VIAL IVPUSH SCH (10:00)
[2020-02-03 11:02] VITALS: BP 134/74; PULSE 73; TEMP 98
--- NOTE | 2020-02-07 18:01 | PATH ---
Surgical Pathology Report Patient Name: TIMMY ALONZO [facility]. Rec. #: [id number] /Age/Gender: 1970 (Age: 49) / F Account: [id number] Location: [address] [place] [address]/[facility] Taken: 02/02/2020 Received: 02/02/2020 Reported: 02/07/2020 Physicians: Franklin Samano M.D. Specimen(s) Received GALLBLADDER Clinical History Symptoms of cholelithiasis Final Diagnosis GALLBLADDER, CHOLECYSTECTOMY: ACUTE AND CHRONIC CHOLECYSTITIS. CHOLELITHIASIS. ONE BENIGN REACTIVE LYMPH NODE Electronically Signed Aida Alarcon M.D. Gross Description Received in formalin, labeled "gallbladder," is an 8.7 x 2.6 x 2.5 cm. gallbladder with a 0.2 cm. in length portion of cystic duct attached. There is a 1.3 cm greatest dimension periductal lymph node present. The outer surface is hicks-milligan and varies from smooth to shaggy. The lumen contains hicks, tenacious bile as well as a 2.3 cm in greatest dimension hicks-yellow, ovoid cholelith. The mucosa is hicks and velvety. The wall of the gallbladder is focally edematous and ranges from 0.1-0.6 cm. in thickness. Pig Iron Loader sections are submitted in 2 cassettes as follows: 1-cystic duct margin and one bisected lymph node; 2-bilingual inside sales representative gallbladder. 02/05/2020 [facility]02/05/2020
== END 2020-02-03 13:29 | disposition home or self-care (01) | DRG 419 ==
LOC: JER 00:38 → JERBED 03:00 → J6S 04:04
PROVIDERS: ADMIT Internal Medicine; ATTEND Nurse Practitioner Acute Care
PROC: 0FT44ZZ Resection of Gallbladder, Percutaneous Endoscopic Approach (ICD-10-PCS; principal; 2020-02-02 11:30)
DX: K80.00 Calculus of gallbladder with acute cholecystitis without obstruction (principal); E05.90 Thyrotoxicosis, unspecified without thyrotoxic crisis or storm; J45.909 Unspecified asthma, uncomplicated; Z88.0 Allergy status to penicillin; K76.0 Fatty (change of) liver, not elsewhere classified
CPT/HCPCS: 36415; 76705-TC; 80053; 81003; 83690; 83735; 84100; 84703; 85025; 85610; 86850; 86900; 86901; 87086; 88304-TC; 93005; 93010; 94760; 99285-25; J0131